=== PATIENT | female | born 1975 | race Caucasian/White ===

== ENCOUNTER 2018-06-27 09:23 | Observation (INO) ==
[2018-06-27] MEDS ORDERED: Morphine Inj 4 MG/ML Vial IV.PUSH ONE ×2 (09:54→21:22)
--- NOTE | 2018-06-27 10:01 | ED ---
HPI General Chief complaint: Headache Stated complaint: Headache Source: patient Mode of arrival: ambulatory Limitations: no limitations History of Present Illness HPI narrative: 42-year-old female is complaining of headache. She says her headache started yesterday the pain that came up the back of her head. Her neck feels stiff. She has a history of migraines but this is not like her usual migraines. She says that she only slept for about 5 minutes last night. She takes gabapentin sporadically because she has had unprovoked seizures in the past though she says she does not have a seizure does she has no history of hypertension or diabetes. She does say that about 2 weeks years ago she had an episode of bacterial meningitis and the pain feels like the pain she had then. She also says she had nosebleed this morning and has had some nosebleeds over the last few days which she usually does not have Related Data Previous Rx's Medication Instructions Recorded gabapentin 600 mg PO TID #30 tab 06/23/18 Allergies Allergy/AdvReac Type Severity Reaction Status Date / Time diphenhydramine Allergy Anaphylaxis Verified 06/27/18 09:24 [From Benadryl] hydroxyzine [From Vistaril] Allergy Anaphylaxis Verified 06/27/18 09:24 Review of Systems Constitutional Reports headache(s) Neurologic Reports confusion [facility] Medical History Medical History Back pain (Acute) Insomnia (Acute) Meningitis (Acute) Seizures (Acute) Surgical History Surgical History History of appendectomy (Acute) Hx of section (Acute) Social History Social History Substance History: No History of Abuse Second Hand Smoke Exposure: No Smoking Status: Never smoker How Often Do You Have a Drink Containing Alcohol: Never Recent Travel in [place] within the Last 8 Weeks: No Recent Out of Country Travel within the Last 8 Weeks: No Immunization History Tetanus Immunization: >5 Years Exam Narrative Exam Narrative: GENERAL: Well-developed female planing of pain SKIN: Focused skin assessment warm/dry. HEAD: Atraumatic. Normocephalic. EYES: Pupils equal and round. No scleral icterus. No injection or drainage. ENT: No nasal bleeding or discharge. Mucous membranes pink and moist. NECK: Trachea midline. No JVD. There is pain with flexion of the neck CARDIOVASCULAR: Regular rate and rhythm. No murmur appreciated. RESPIRATORY: No accessory muscle use. Clear to auscultation. Breath sounds equal bilaterally. GASTROINTESTINAL: Abdomen soft, non-tender, nondistended. Hepatic and splenic margins not palpable. MUSCULOSKELETAL: No obvious deformities. No clubbing. No cyanosis. No edema. NEUROLOGICAL: Awake and alert. No obvious cranial nerve deficits. Motor grossly within normal limits. Normal speech. PSYCHIATRIC: Appropriate mood and affect; insight and judgment normal. Procedures Lumbar Puncture Time Out Performed: Yes Patient Position: left lateral decubitus Skin Prep: Povidone-Iodine 1% Local anesthetic used: Lidocaine 1% Amount of anesthesia used (mL): 10 Spinal Needle Gauge: 20G Interspace Used: L3-L4 Opening Pressure (cmH20): 15 Fluid Initially Obtained: clear Complications: none Course Initial Documented Vital Signs Temperature 98.1 F 06/27/18 09:25 Pulse Rate 75 06/27/18 09:25 Respiratory Rate 16 06/27/18 09:25 Blood Pressure 110/74 06/27/18 09:25 Pulse Oximetry 98 06/27/18 09:25 Last Documented Vital Signs Temperature 98.2 F 06/27/18 12:05 Pulse Rate 69 06/27/18 13:12 Respiratory Rate 16 06/27/18 13:12 Blood Pressure 106/68 06/27/18 13:12 Pulse Oximetry 97 06/27/18 13:12 Medical Decision Making [facility] Narrative Medical decision making narrative: Patient reports that this headache is similar to the headache she had when she had a meningitis. A CT scan was done and shows some calcification in the cerebellum which is thought to be chronic. An LP was done which shows normal pressure and normal lab results. The patient has been given repeated doses of morphine, Toradol, Zofran Dilaudid and she is still complaining of significant headache. I think she will need to be admitted for intractable pain Medical Screen Exam Complete: Yes Emergency Medical Condition: Yes Differential Diagnosis Differential Diagnosis: Differential includes meningitis, headache, although headache Lab Data Result diagrams: 06/27/18 10:11 06/27/18 10:11 Lab Results 06/27/18 06/27/18 06/27/18 Range/Units 10:11 10:11 10:11 CBC w Diff Auto diff final WBC 4.5 (4.0-11.0) th/mm3 RBC 4.32 (4.00-5.30) mil/mm3 Hgb 13.6 (11.6-15.3) gm/dL Hct 40.0 (35.0-46.0) % MCV 92.4 (80.0-100.0) fL MCH 31.3 (27.0-34.0) pg MCHC 33.9 (32.0-36.0) % RDW 12.8 (11.6-17.2) % Plt Count 258 (150-450) th/mm3 MPV 9.7 (7.0-11.0) fL Neut % (Auto) 59.3 (16.0-70.0) % Lymph % (Auto) 29.9 (9.0-44.0) % Hamilton % (Auto) 7.4 (0.0-8.0) % Eos % (Auto) 2.6 (0.0-4.0) % Baso % (Auto) 0.8 (0.0-2.0) % Neut # (Auto) 2.8 (1.8-7.7) th/mm3 Lymph # (Auto) 1.3 (1.0-4.8) th/mm3 Hamilton # (Auto) 0.3 (0.0-0.9) th/mm3 Eos # (Auto) 0.1 (0.0-0.4) th/mm3 Baso # (Auto) 0.0 (0.0-0.2) th/mm3 WBC Differential . Differential Comment . PT 10.2 (9.8-11.6) sec INR 1.0 Ratio APTT 24.0 (23.4-31.7) sec Sodium 140 (136-145) meq/L Potassium 3.9 (3.5-5.1) meq/L Chloride 108 H (98-107) meq/L Carbon Dioxide 27.2 (21.0-32.0) meq/L Anion Gap 5 (5-15) meq/L BUN 14 (7-18) mg/dL Creatinine 0.90 (0.50-1.00) mg/dL Estimated GFR 68 L (>89) mL/min Random Glucose 93 (74-106) mg/dL Calcium 8.6 (8.5-10.1) mg/dL Total Bilirubin 0.5 (0.2-1.0) mg/dL AST 67 H (15-37) U/L ALT 137 H (10-53) U/L Alkaline Phosphatase 77 (45-117) U/L Total Protein 7.3 (6.4-8.2) g/dL Albumin 4.0 (3.4-5.0) g/dL Ur Collection Type Urine Color (Yellw/Straw) Urine Clarity (Clear) Urine pH (5.0-8.5) Ur Specific [place] (1.002-1.035) Urine Protein (Neg-Trace) mg/dL Urine Glucose (UA) (Negative) mg/dL Urine Ketones (Negative) mg/dL Urine Occult Blood (Negative) Urine Nitrate (Negative) Urine Bilirubin (Negative) Urine Urobilinogen (Less than 2) mg/dL Ur Leukocyte Esterase (Negative) Urine WBC (0-5) /hpf Ur Squamous Epith Cells (0-5) /hpf Urine Bacteria (None) /hpf Urine Mucus (Occasional) /lpf Micro UA Comment Ur Microscopic Review Urine Culture Comments CSF Volume (1) mL CSF Supernat Color (1) (Clear) CSF Gross Blood (1) (0) CSF Volume (2) mL CSF Supernat Color (2) (Clear) CSF Gross Blood (2) (0) CSF Volume (3) mL CSF Supernat Color (3) (Clear) CSF Gross Blood (3) (0) CSF Volume (4) mL CSF Supernat Color (4) (Clear) CSF Gross Blood (4) (0) CSF WBC (4) (0-10) /mm3 CSF RBC (4) (None) /mm3 CSF Neutrophils % % CSF Lymphocytes % % CSF Glucose (40-80) mg/dL CSF Total Protein (15.0-45.0) mg/dL 06/27/18 06/27/18 06/27/18 Range/Units 11:20 11:25 11:25 CBC w Diff WBC (4.0-11.0) th/mm3 RBC (4.00-5.30) mil/mm3 Hgb (11.6-15.3) gm/dL Hct (35.0-46.0) % MCV (80.0-100.0) fL MCH (27.0-34.0) pg MCHC (32.0-36.0) % RDW (11.6-17.2) % Plt Count (150-450) th/mm3 MPV (7.0-11.0) fL Neut % (Auto) (16.0-70.0) % Lymph % (Auto) (9.0-44.0) % Hamilton % (Auto) (0.0-8.0) % Eos % (Auto) (0.0-4.0) % Baso % (Auto) (0.0-2.0) % Neut # (Auto) (1.8-7.7) th/mm3 Lymph # (Auto) (1.0-4.8) th/mm3 Hamilton # (Auto) (0.0-0.9) th/mm3 Eos # (Auto) (0.0-0.4) th/mm3 Baso # (Auto) (0.0-0.2) th/mm3 WBC Differential Differential Comment PT (9.8-11.6) sec INR Ratio APTT (23.4-31.7) sec Sodium (136-145) meq/L Potassium (3.5-5.1) meq/L Chloride (98-107) meq/L Carbon Dioxide (21.0-32.0) meq/L Anion Gap (5-15) meq/L BUN (7-18) mg/dL Creatinine (0.50-1.00) mg/dL Estimated GFR (>89) mL/min Random Glucose (74-106) mg/dL Calcium (8.5-10.1) mg/dL Total Bilirubin (0.2-1.0) mg/dL AST (15-37) U/L ALT (10-53) U/L Alkaline Phosphatase (45-117) U/L Total Protein (6.4-8.2) g/dL Albumin (3.4-5.0) g/dL Ur Collection Type Clean catch Urine Color Yellow (Yellw/Straw) Urine Clarity Slightly cloudy (Clear) Urine pH 5.5 (5.0-8.5) Ur Specific [place] 1.025 (1.002-1.035) Urine Protein Negative (Neg-Trace) mg/dL Urine Glucose (UA) Negative (Negative) mg/dL Urine Ketones Negative (Negative) mg/dL Urine Occult Blood Moderate H (Negative) Urine Nitrate Negative (Negative) Urine Bilirubin Negative (Negative) Urine Urobilinogen 0.2 (Less than 2) mg/dL Ur Leukocyte Esterase Negative (Negative) Urine WBC 0-5 (0-5) /hpf Ur Squamous Epith Cells 6-10 H (0-5) /hpf Urine Bacteria Few H (None) /hpf Urine Mucus Few H (Occasional) /lpf Micro UA Comment Culture not ind Ur Microscopic Review Microscopic reviewed Urine Culture Comments Culture not ind CSF Volume (1) 1.0 mL CSF Supernat Color (1) Clear (Clear) CSF Gross Blood (1) 0 (0) CSF Volume (2) 1.0 mL CSF Supernat Color (2) Clear (Clear) CSF Gross Blood (2) 0 (0) CSF Volume (3) 1.0 mL CSF Supernat Color (3) Clear (Clear) CSF Gross Blood (3) 0 (0) CSF Volume (4) 1.5 mL CSF Supernat Color (4) Clear (Clear) CSF Gross Blood (4) 0 (0) CSF WBC (4) 0 (0-10) /mm3 CSF RBC (4) 0 (None) /mm3 CSF Neutrophils % 0 % CSF Lymphocytes % 0 % CSF Glucose 57 (40-80) mg/dL CSF Total Protein (15.0-45.0) mg/dL 06/27/18 Range/Units 11:25 CBC w Diff WBC (4.0-11.0) th/mm3 RBC (4.00-5.30) mil/mm3 Hgb (11.6-15.3) gm/dL Hct (35.0-46.0) % MCV (80.0-100.0) fL MCH (27.0-34.0) pg MCHC (32.0-36.0) % RDW (11.6-17.2) % Plt Count (150-450) th/mm3 MPV (7.0-11.0) fL Neut % (Auto) (16.0-70.0) % Lymph % (Auto) (9.0-44.0) % Hamilton % (Auto) (0.0-8.0) % Eos % (Auto) (0.0-4.0) % Baso % (Auto) (0.0-2.0) % Neut # (Auto) (1.8-7.7) th/mm3 Lymph # (Auto) (1.0-4.8) th/mm3 Hamilton # (Auto) (0.0-0.9) th/mm3 Eos # (Auto) (0.0-0.4) th/mm3 Baso # (Auto) (0.0-0.2) th/mm3 WBC Differential Differential Comment PT (9.8-11.6) sec INR Ratio APTT (23.4-31.7) sec Sodium (136-145) meq/L Potassium (3.5-5.1) meq/L Chloride (98-107) meq/L Carbon Dioxide (21.0-32.0) meq/L Anion Gap (5-15) meq/L BUN (7-18) mg/dL Creatinine (0.50-1.00) mg/dL Estimated GFR (>89) mL/min Random Glucose (74-106) mg/dL Calcium (8.5-10.1) mg/dL Total Bilirubin (0.2-1.0) mg/dL AST (15-37) U/L ALT (10-53) U/L Alkaline Phosphatase (45-117) U/L Total Protein (6.4-8.2) g/dL Albumin (3.4-5.0) g/dL Ur Collection Type Urine Color (Yellw/Straw) Urine Clarity (Clear) Urine pH (5.0-8.5) Ur Specific [place] (1.002-1.035) Urine Protein (Neg-Trace) mg/dL Urine Glucose (UA) (Negative) mg/dL Urine Ketones (Negative) mg/dL Urine Occult Blood (Negative) Urine Nitrate (Negative) Urine Bilirubin (Negative) Urine Urobilinogen (Less than 2) mg/dL Ur Leukocyte Esterase (Negative) Urine WBC (0-5) /hpf Ur Squamous Epith Cells (0-5) /hpf Urine Bacteria (None) /hpf Urine Mucus (Occasional) /lpf Micro UA Comment Ur Microscopic Review Urine Culture Comments CSF Volume (1) mL CSF Supernat Color (1) (Clear) CSF Gross Blood (1) (0) CSF Volume (2) mL CSF Supernat Color (2) (Clear) CSF Gross Blood (2) (0) CSF Volume (3) mL CSF Supernat Color (3) (Clear) CSF Gross Blood (3) (0) CSF Volume (4) mL CSF Supernat Color (4) (Clear) CSF Gross Blood (4) (0) CSF WBC (4) (0-10) /mm3 CSF RBC (4) (None) /mm3 CSF Neutrophils % % CSF Lymphocytes % % CSF Glucose (40-80) mg/dL CSF Total Protein 44.6 (15.0-45.0) mg/dL Imaging Data Radiologist's impression: Head CT 06/27/18 09:54 CONCLUSION: 1. No acute hemorrhage or mass effect. 2. Unusual area of punctate calcification noted in the right posterior cerebellar hemisphere with no surrounding edema or mass effect. This likely is a chronic finding and may be due to remote insult. Discharge Plan Discharge Disposition Patient Disposition: ED Admit(ED Internal Use Only) Discharge Condition Condition: Fair Discharge Details Diagnosis: Headache Physicians Team ED Provider: Silvano Ed,[facility] [place] Primary Care Provider: Primary Care Physici,No Rxs /Orders / Referrals /Forms Prescriptions: No Action gabapentin 600 mg tablet 600 mg PO TID Qty: 30 RF: 0 Discharge Interventions Interventions: Vital Signs Last Done: 06/27/18 13:12 Status ED Status: In Room
[2018-06-27] MEDS: Sod Chloride 0.9% Inj 1,000 ML IV.CONT SCH ×2 (10:10→18:19)
--- NOTE | 2018-06-27 10:21 | CT ---
EXAM DATE: 06/27/2018 10:16 AM EST AGE/SEX: 42 years / Female INDICATIONS: Cephalgia, nausea, and vomiting. CLINICAL DATA: This is the patient's initial encounter. Patient reports that signs and symptoms have been present for 1 day and indicates a pain score of 10/10. MEDICAL/SURGICAL HISTORY: Seizures. Meningitis. Appendectomy. section. RADIATION DOSE: 59.97 CTDI (mGy) COMPARISON: No prior exams available for comparison. TECHNIQUE: CT of the head without contrast. Using automated exposure control and adjustment of the mA and/or kV according to patient size, radiation dose was kept as low as reasonably achievable to ob tain optimal diagnostic quality images. DICOM format image data is available electronically for revi ew and comparison. FINDINGS: Cerebrum: The ventricles are normal for age. No evidence of midline shift, mass lesion, hemorrhage or acute infarction. No extraaxial fluid collections are seen. Posterior Fossa: The cerebellum and brainstem are intact. The 4th ventricle is midline. The cerebe llopontine angle is unremarkable. There is an area of punctate calcification noted in the right poste rior cerebellar hemisphere. This area measures up to approximately 1.3 x 1 cm in diameter. There is n o surrounding edema or mass effect. Extracranial: The visualized portion of the orbits is intact. Skull: The calvaria is intact. No evidence of skull fracture. CONCLUSION: 1. No acute hemorrhage or mass effect. 2. Unusual area of punctate calcification noted in the right posterior cerebellar hemisphere with no surrounding edema or mass effect. This likely is a chronic finding and may be due to remote insult. Electronically signed by: Silver Serrato MD Board Certified Radiologist 06/27/2018 10:19 AM EST
[2018-06-27 10:28] LABS: Baso % (Auto) 0.8 % (0.0-2.0); Eos # (Auto) 0.1 th/mm3 (0.0-0.4); Eos % (Auto) 2.6 % (0.0-4.0); Hemoglobin 13.6 gm/dL (11.6-15.3); Lymph # (Auto) 1.3 th/mm3 (1.0-4.8); Lymph % (Auto) 29.9 % (9.0-44.0); Mean Corpuscular HGB Conc 33.9 % (32.0-36.0); Mean Corpuscular Hemoglobin 31.3 pg (27.0-34.0); Mean Corpuscular Volume 92.4 fL (80.0-100.0); Mean Platelet Volume 9.7 fL (7.0-11.0); Mono # (Auto) 0.3 th/mm3 (0.0-0.9); Mono % (Auto) 7.4 % (0.0-8.0); Neut # (Auto) 2.8 th/mm3 (1.8-7.7); Neut % (Auto) 59.3 % (16.0-70.0); Platelet Count 258 th/mm3 (150-450); Red Blood Count 4.32 mil/mm3 (4.00-5.30); Red Cell Distribution Width 12.8 % (11.6-17.2); White Blood Count 4.5 th/mm3 (4.0-11.0)
[2018-06-27] MEDS ORDERED: Morphine Sulfate Inj 8 MG/ML Vial IV.PUSH ONE (10:39)
[2018-06-27 10:43] LABS: Chloride 108 meq/L (98-107); Potassium 3.9 meq/L (3.5-5.1); Sodium 140 meq/L (136-145)
[2018-06-27 10:46] LABS: Anion Gap 5 meq/L (5-15); Blood Urea Nitrogen 14 mg/dL (7-18); Calcium 8.6 mg/dL (8.5-10.1); Carbon Dioxide 27.2 meq/L (21.0-32.0); Glucose,Random 93 mg/dL (74-106)
[2018-06-27 10:47] LABS: Prothrombin Time 10.2 sec (9.8-11.6)
[2018-06-27 10:49] LABS: Alanine Aminotransferase 137 U/L (10-53); Aspartate Aminotransferase 67 U/L (15-37); Glomerular Filtration Rate 68 mL/min (>89)
[2018-06-27 10:51] LABS: Total Protein 7.3 g/dL (6.4-8.2)
[2018-06-27 10:52] LABS: Alkaline Phosphatase 77 U/L (45-117)
[2018-06-27] MEDS ORDERED: Morphine Inj 4 MG, Morphine Inj 2 MG IV.PUSH ONE ×2 (11:33)
[2018-06-27 11:39] LABS: Bilirubin,Urine Negative (Negative); Clarity,Urine Slightly Cloudy (Clear); Color,Urine Yellow (Yellw/Straw); Glucose,Urine (UA) Negative (Negative); Leukocyte Esterase,Urine Negative (Negative); Nitrite,Urine Negative (Negative); PH,Urine 5.5 (5.0-8.5); Specific Gravity,Urine 1.025 (1.002-1.035); Urobilinogen,Urine 0.2 mg/dL (Less than 2)
[2018-06-27 11:46] LABS: Bacteria,Urine Few /hpf; Mucus,Urine Few /lpf (Occasional); WBC,Urine 0-5 /hpf (0-5)
[2018-06-27 11:59] LABS: RBC on Tube 4 0 /mm3
[2018-06-27 12:27] LABS: Lymphocytes, CSF 0 %; Neutrophils,CSF 0 %
[2018-06-27] MEDS ORDERED: Ketorolac Inj 30 MG/ML (IVP) Vial IV.PUSH ONE (12:59)
[2018-06-27] MEDS ORDERED: HYDROmorphone PF Inj 1 MG/50 ML BAG IV.SIG ONE (13:00)
[2018-06-27] MEDS ORDERED: HYDROmorphone PF Inj 1 MG/ML Ampul IV.PUSH ONE (13:30)
[2018-06-27] MEDS ORDERED: Acetaminophen 325 MG Tablet PO PRN (15:04)
[2018-06-27] MEDS ORDERED: Bisacodyl 10 MG Supp RECTAL PRN (15:04)
[2018-06-27] MEDS ORDERED: Butalbital/ASA/Caff 50/325/40 Capsule PO PRN (15:42)
--- NOTE | 2018-06-27 15:46 | P.HPIM ---
History of Present Illness Primary Care Physician: No Primary Care Physician Chief Complaint: Headache History of Present Illness: This is a 42-year-old female patient with a known medical history of migraine headache and remote history of seizures who presented to the ED with complaints of headache. Patient states that her head is been hurting for 2 days now, states that her neck feels stiff. She does admit to nausea and vomiting and unable to eat for the past couple days due to the pain. Patient does take gabapentin has been prescribed to her for history of seizures. Patient also admits to bacterial meningitis roughly 2 years ago and states that the headaches feels just like when she had bacterial meningitis. She also admits to a nosebleed this morning. Does admit to subjective fevers although she did not check her temperature at home, has been taking ibuprofen, denies any sick contacts at home. Patient is from [place], follows with a neurologist [facility], states that she was being followed for intermittent seizures. Patient states she is taken Imitrex as well as Fioricet for migraine headache in the past. Denies any new changes to her medications. She feels like she has the flu. Review of Systems Review of Systems: all other systems reviewed are negative [facility] Medical History Medical History Back pain (Acute) Insomnia (Acute) Meningitis (Acute) Seizures (Acute) Surgical History Surgical History History of appendectomy (Acute) Hx of section (Acute) Social History Social History Substance History: No History of Abuse Second Hand Smoke Exposure: No Smoking Status: Never smoker How Often Do You Have a Drink Containing Alcohol: Never Recent Travel in [place] within the Last 8 Weeks: No Recent Out of Country Travel within the Last 8 Weeks: No Immunization History Tetanus Immunization: >5 Years Medications and Allergies Allergies Allergy/AdvReac Type Severity Reaction Status Date / Time diphenhydramine Allergy Anaphylaxis Verified 06/27/18 09:24 [From Benadryl] hydroxyzine [From Vistaril] Allergy Anaphylaxis Verified 06/27/18 09:24 Active Medications: Active Medications Acetaminophen (Tylenol) 650 mg PO Q4H PRN PRN Reason: Temp > 100.4 Al Hydroxide/Mg Hydroxide (Milk Of Magnesia Liq) 30 ml PO Q12H PRN PRN Reason: Mild Constipation Bisacodyl (Dulcolax Supp) 10 mg RECTAL DAILY PRN PRN Reason: SEVERE CONSITIPATION Sodium Chloride (Ns Inj) 1,000 mls @ 125 mls/hr IV.CONT .Q8H [facility] Last Infusion: 06/27/18 15:22 Dose: 125 mls/hr Lactulose (Lactulose Liq) 30 ml PO DAILY PRN PRN Reason: SEVERE CONSITIPATION Ondansetron HCl (Zofran Inj) 4 mg IV.PUSH Q6H PRN PRN Reason: NAUSEA OR VOMITING Sennosides (Senokot) 17.2 mg PO Q12H PRN PRN Reason: Moderate Constipation Sodium Chloride (Ns Flush) 2 ml IV.FLUSH PRN PRN PRN Reason: FLUSH AFTER USING IV ACCESS Sodium Chloride (Ns Flush) 2 ml IV.FLUSH BID MORALES Sodium Chloride (Ns Flush) 2 ml IV.FLUSH PRN PRN PRN Reason: FLUSH AFTER USING IV ACCESS Physical Exam Vital signs: Vital Signs 06/27/18 09:25 06/27/18 10:30 06/27/18 10:45 Temperature 98.1 F Pulse Rate 75 64 Respiratory Rate 16 16 16 Blood Pressure 110/74 119/72 Pulse Oximetry 98 97 06/27/18 11:36 06/27/18 12:05 06/27/18 12:10 Temperature 98.2 F Pulse Rate 68 Respiratory Rate 17 16 17 Blood Pressure 108/71 Pulse Oximetry 98 06/27/18 13:12 06/27/18 14:00 06/27/18 14:05 Temperature Pulse Rate 69 Respiratory Rate 16 15 16 Blood Pressure 106/68 Pulse Oximetry 97 06/27/18 14:20 06/27/18 15:20 Temperature Pulse Rate 68 70 Respiratory Rate 15 17 Blood Pressure 107/66 109/68 Pulse Oximetry 97 97 Intake & Output 06/26/18 06/27/18 06/27/18 18:59 06:59 18:59 Output Total 300 / 300 Balance -300 / -300 Weight 65.1 kg Output: Urine 300 / 300 Narrative: GENERAL: Well-developed, well-nourished patient in NAD. SKIN: Warm and dry. No rash. HEAD: Normocephalic. Atraumatic. EYES: Pupils equal and round. No scleral icterus. No injection or drainage. ENT: No nasal bleeding or discharge. Mucous membranes pink and moist. NECK: Supple. Trachea midline. CARDIOVASCULAR: Regular rate and rhythm. S1, S2 noted. No murmur appreciated. RESPIRATORY: No accessory muscle use. Clear to auscultation. Breath sounds equal bilaterally. GASTROINTESTINAL: Abdomen soft, non-tender, nondistended. Normoactive bowel sounds x4. MUSCULOSKELETAL: No obvious deformities. Extremities without clubbing, cyanosis , or edema. NEUROLOGICAL: Awake and alert. No obvious cranial nerve deficits. Motor grossly within normal limits. 5/5 muscle strength in bilateral upper and lower extremities. Normal speech. PSYCHIATRIC: Appropriate mood and affect; insight and judgment normal. Results Labs CBC & Chem 7: 06/27/18 10:11 06/27/18 10:[address] 06/27/18 09:54 CONCLUSION: 1. No acute hemorrhage or mass effect. 2. Unusual area of punctate calcification noted in the right posterior cerebellar hemisphere with no surrounding edema or mass effect. This likely is a chronic finding and may be due to remote insult. Caprini VTE Risk Assessment Caprini VTE Risk Assessment: No/Low Risk (score <= 1) Caprini Risk Assessment Model: Point Value = 1 Point Value = 2 Point Value = 3 Point Value = 5 Age 41-60 Minor surgery BMI > 25 kg/m2 Swollen legs Varicose veins or History of unexplained or recurrent spontaneous Oral contraceptives or hormone replacement Sepsis (< 1 month) Serious lung disease, including pneumonia (< 1 month) Abnormal pulmonary function Acute myocardial infarction Congestive heart failure (< 1 month) History of inflammatory bowel disease Medical patient at bed rest Age 61-74 Arthroscopic surgery Major open surgery (> 45 min) Laparoscopic surgery (> 45 min) Malignancy Confined to bed (> 72 hours) Immobilizing plaster cast Central venous access Age >= 75 History of VTE Family history of VTE Factor V Leiden Prothrombin [id number] Lupus anticoagulant Anticardiolipin antibodies Elevated serum homocysteine Heparin-induced thrombocytopenia Other congenital or acquired thrombophilia Stroke (< 1 month) Elective arthroplasty Hip, pelvis, or leg fracture Acute spinal cord injury (< 1 month) Prophylaxis Regimen: Total Risk Factor Score Risk Level Prophylaxis Regimen 0-1 Low Early ambulation 2 Moderate Order ONE of the following: *Sequential Compression Device (SCD) *Heparin 5000 units SQ BID 3-4 Higher Order ONE of the following medications: *Heparin 5000 units SQ TID *Enoxaparin/Lovenox 40 mg SQ daily (WT < 150 kg, CrCl > 30 mL/min) *Enoxaparin/Lovenox 30 mg SQ daily (WT < 150 kg, CrCl > 10-29 mL/min) *Enoxaparin/Lovenox 30 mg SQ BID (WT < 150 kg, CrCl > 30 mL/min) AND/OR *Sequential Compression Device (SCD) 5 or more Highest Order ONE of the following medications: *Heparin 5000 units SQ TID (Preferred with Epidurals) *Enoxaparin/Lovenox 40 mg SQ daily (WT < 150 kg, CrCl > 30 mL/min) *Enoxaparin/Lovenox 30 mg SQ daily (WT < 150 kg, CrCl > 10-29 mL/min) *Enoxaparin/Lovenox 30 mg SQ BID (WT < 150 kg, CrCl > 30 mL/min) AND *Sequential Compression Device (SCD) Assessment and Plan Plan This is a 42-year-old female patient with no medical history of migraine headache and remote history of seizures who presented to the ED with complaints of headache. Headache -Head CT done showing no acute hemorrhage or mass effect.2. Unusual area of punctate calcification noted in the right posterior cerebellar hemisphere with no surrounding edema or mass effect. This is chronic for the patient, patient states she hit her head on the bathtub when she was younger. -Patient had an LP done in the ED which was completely unremarkable. CBC and BMP reviewed, essentially unremarkable. -Vital signs have been stable. Will attempt to Fioricet for complaints of headache. Refusing Imitrex. Assess response. -Continue home gabapentin. -Ensure hydration, continue IV fluids. -Supportive care. DVT prophylaxis: SCDs. Ambulation. Discussed with patient, patient's significant other, Dr. cosme.
[2018-06-27] MEDS ORDERED: Butalbital/APAP/Caff 50/325/40 MG Tablet PO ONE (16:15)
[2018-06-27] MEDS: Gabapentin 300 MG Capsule PO SCH ×2 (16:26→17:05)
[2018-06-28] MEDS ORDERED: Melatonin 5 MG Tablet PO ONE (01:00)
[2018-06-28] MEDS: Sod Chloride 0.9% Inj 1,000 ML IV.CONT SCH ×2 (01:21→09:32)
[2018-06-28] MEDS: Morphine Inj 4 MG/ML Vial IV.PUSH PRN ×2 (01:21→05:23)
[2018-06-28 07:25] LABS: Baso % (Auto) 0.7 % (0.0-2.0); Eos # (Auto) 0.1 th/mm3 (0.0-0.4); Eos % (Auto) 2.4 % (0.0-4.0); Hematocrit 37.4 % (35.0-46.0); Hemoglobin 12.7 gm/dL (11.6-15.3); Lymph # (Auto) 1.8 th/mm3 (1.0-4.8); Lymph % (Auto) 30.9 % (9.0-44.0); Mean Corpuscular Hemoglobin 31.7 pg (27.0-34.0); Mean Corpuscular Volume 93.4 fL (80.0-100.0); Mean Platelet Volume 9.1 fL (7.0-11.0); Mono # (Auto) 0.4 th/mm3 (0.0-0.9); Mono % (Auto) 6.6 % (0.0-8.0); Neut # (Auto) 3.5 th/mm3 (1.8-7.7); Neut % (Auto) 59.4 % (16.0-70.0); Platelet Count 259 th/mm3 (150-450); Red Cell Distribution Width 12.9 % (11.6-17.2); White Blood Count 5.8 th/mm3 (4.0-11.0)
[2018-06-28 07:45] LABS: Potassium 3.7 meq/L (3.5-5.1)
[2018-06-28 07:48] LABS: Calcium 7.8 mg/dL (8.5-10.1); Carbon Dioxide 28.2 meq/L (21.0-32.0)
[2018-06-28] MEDS: Gabapentin 300 MG Capsule PO SCH ×2 (08:26→12:36)
[2018-06-28] MEDS ORDERED: Morphine Sulfate Inj 2 MG/ML Vial IV.PUSH PRN (09:09)
--- NOTE | 2018-06-28 11:02 | P.PNIM ---
Subjective Interval history: Follow-up intractable headache. Patient seen and examined, states that her pain has never gone away overnight actually is worse compared to when she presented to the hospital. Patient is status post lumbar puncture which is completely unremarkable. I have updated Dr. dennis about patient's continued pressure-like pain in her head. Patient is refusing Imitrex states it is not a migraine. I have placed a call out to the radiologist to assist with possibly may be repeating the lumbar puncture if this could be a rebound headache. Awaiting a call back. For now we will continue supportive care and vital signs. Continue on IV morphine. Physical Exam Vital signs: Vital Signs 06/27/18 11:36 06/27/18 12:05 06/27/18 12:10 Temperature 98.2 F Pulse Rate 68 Respiratory Rate 17 16 17 Blood Pressure 108/71 Pulse Oximetry 98 06/27/18 13:12 06/27/18 14:00 06/27/18 14:05 Temperature Pulse Rate 69 Respiratory Rate 16 15 16 Blood Pressure 106/68 Pulse Oximetry 97 06/27/18 14:20 06/27/18 15:20 06/27/18 16:00 Temperature 97.5 F L Pulse Rate 68 70 98 H Respiratory Rate 15 17 15 Blood Pressure 107/66 109/68 131/83 Pulse Oximetry 97 97 97 06/27/18 20:00 06/28/18 00:00 06/28/18 08:00 Temperature 98.1 F 97.8 F 97.5 F L Pulse Rate 98 H 58 L 78 Respiratory Rate 20 20 15 Blood Pressure 126/85 110/63 110/61 Pulse Oximetry 98 96 97 Intake & Output 06/27/18 06/28/18 06/28/18 18:59 06:59 18:59 Intake Total 1000 / 1000 1500 / 1500 1000 / 1000 Output Total 300 / 300 Balance 700 / 700 1500 / 1500 1000 / 1000 Weight 65.1 kg 66.4 kg Intake: IV 1000 / 1000 1500 / 1500 1000 / 1000 NS Inj 1,000 ML @ 125 mls/hr IV 1000 / 1000 1500 / 1500 1000 / 1000 .CONT .Q8H MORALES Rx#:[id number] Output: Urine 300 / 300 Other: # Voids 1 4 Weight On Admission 65.1 kg Narrative: GENERAL: Well-developed, well-nourished patient with complaint of worsening headache and pressure in her head. SKIN: Warm and dry. No rash. HEAD: Normocephalic. Atraumatic. EYES: Pupils equal and round. No scleral icterus. No injection or drainage. ENT: No nasal bleeding or discharge. Mucous membranes pink and moist. NECK: Supple. Trachea midline. CARDIOVASCULAR: Regular rate and rhythm. S1, S2 noted. No murmur appreciated. RESPIRATORY: No accessory muscle use. Clear to auscultation. Breath sounds equal bilaterally. GASTROINTESTINAL: Abdomen soft, non-tender, nondistended. Normoactive bowel sounds x4. MUSCULOSKELETAL: No obvious deformities. Extremities without clubbing, cyanosis , or edema. NEUROLOGICAL: Awake and alert. No obvious cranial nerve deficits. Motor grossly within normal limits. 5/5 muscle strength in bilateral upper and lower extremities. Normal speech. PSYCHIATRIC: Appropriate mood and affect; insight and judgment normal. Results Labs CBC & Chem 7: 06/28/18 07:15 06/28/18 07:15 Labs: Microbiology 06/27/18 11:25 Lumbar Puncture Gram Stain - Final 06/27/18 11:25 Lumbar Puncture CSF Culture - Preliminary No growth in 24 hours 06/27/18 16:00 Nasal Aspirate Influenza Types A,B Antigen - Final Negative for FLU A and B antigen Infection due to influenza A or B cannot be ruled out since the antigen present in the sample may be below the detection limit of the test. Assessment and Plan Plan This is a 42-year-old female patient with no medical history of migraine headache and remote history of seizures who presented to the ED with complaints of headache. Headache -Head CT done showing no acute hemorrhage or mass effect.2. Unusual area of punctate calcification noted in the right posterior cerebellar hemisphere with no surrounding edema or mass effect. This is chronic for the patient, patient states she hit her head on the bathtub when she was younger. -Patient had an LP done in the ED which was completely unremarkable. CBC and BMP reviewed, essentially unremarkable. -Vital signs have been stable. Fioricet tried yesterday with no relief. Refusing Imitrex. -Continued on IV morphine. -Continue home gabapentin. -Ensure hydration, continue IV fluids. -Headache is worsening today. Left a message with radiologist, this could possibly be a rebound headache from LP that was done yesterday. May need to repeat LP if recommended by radiologist. DVT prophylaxis: SCDs. Ambulation. Discussed with patient, patient's significant other, Dr. cosme. Progress Note: Quality VTE Deep Vein Thrombosis/Pulmonary Embolism Present on Admission: No
[2018-06-28] MEDS: Morphine Sulfate Inj 2 MG/ML Vial IV.PUSH PRN ×2 (12:35→15:32)
--- NOTE | 2018-06-28 13:59 | CT ---
EXAM DATE: 06/28/2018 1:56 PM EST AGE/SEX: 42 years / Female INDICATIONS: Worsening headache. Loss of appetite. Nausea and vomiting. CLINICAL DATA: This is the patient's subsequent encounter. Patient reports that signs and symptoms h ave been present for 2 days and indicates a pain score of 9/10. MEDICAL/SURGICAL HISTORY: Seizures. Migraines. Appendectomy. section. RADIATION DOSE: 60.30 CTDI (mGy) COMPARISON: [facility], CT HEAD W/O CONTRAST, 06/27/2018. . TECHNIQUE: CT of the head without contrast. Using automated exposure control and adjustment of the mA and/or kV according to patient size, radiation dose was kept as low as reasonably achievable to ob tain optimal diagnostic quality images. DICOM format image data is available electronically for revi ew and comparison. FINDINGS: Cerebrum: The ventricles are normal for age. No evidence of midline shift, mass lesion, hemorrhage or acute infarction. No extraaxial fluid collections are seen. Posterior Fossa: Calcified lesion in the right cerebellum is unchanged. The cerebellum and brainstem are intact. The 4th ventricle is midline. The cerebellopontine angle is unremarkable. Extracranial: The visualized portion of the orbits is intact. Skull: The calvaria is intact. No evidence of skull fracture. CONCLUSION: 1. Calcified lesion in the right cerebellum is unchanged. Contrasted MRI recommended for further kathy racterization. 2. No significant interval change. . . Electronically signed by: Kevyn Siegel MD Board Certified Radiologist 06/28/2018 1:58 PM EST
[2018-06-28 14:09] VITALS: BP 128/86; PULSE 87; RESP 17; TEMP 98.2; O2SAT 98
== END 2018-06-28 18:05 | disposition home or self-care (01) ==
LOC: PHEDA 09:23 → PHED 09:23 → PH3 15:24
PROVIDERS: ADMIT Hospitalist; ATTEND Hospitalist
DX: R11.2 Nausea with vomiting, unspecified; G47.00 Insomnia, unspecified; R51 Headache; Z86.61 Personal history of infections of the central nervous system
CPT/HCPCS: 62270; 70450; 80048; 80053; 81001; 82945; 84155; 84157; 85025; 85610; 85730; 87040; 87070; 87205; 87275; 87276; 87804; 89051; 90761; 90774; 90775; 90776; 96361; 96374; 96375; 96376; 99285; C8952; G0378; J1170; J1885; J2270; J2405; J7030